=== PATIENT | male | born 1995 | race Two or more races ===

== ENCOUNTER 2020-11-27 15:11 | Outpatient (REF) | payer MEDICAID, SELFPAY | END 2020-11-27 15:12 | disposition home or self-care (01) | LOC: HO.LAB 15:11 | PROVIDERS: Visit Provider Internal Medicine | DX: Z20.822 Contact with and (suspected) exposure to COVID-19 (principal) | CPT/HCPCS: 36415; C9803; U0003; U0005 ==

== ENCOUNTER 2022-02-03 21:43 | Emergency (ER) | payer MEDICAID, SELFPAY ==
--- NOTE | ~2022-02-03 | XR_ITS ---
EXAMINATION: XR ANKLE, LEFT CLINICAL INFORMATION: Soft tissue swelling at lateral malleolus. COMPARISON: None TECHNIQUE: 3 views. of the left ankle. FINDINGS: The bones and soft tissues are normal. No fracture. Alignment is anatomic. Joint spaces are maintained. No joint effusion. XR/XR ankle LT min 3V IMPRESSION: Soft tissue swelling at lateral malleolus. There is no acute osseous abnormality.
[2022-02-03 21:50] VITALS: BP 108/68; PULSE 92; RESP 18; TEMP 37.1; O2SAT 96; BMI 19.1
--- NOTE | 2022-02-03 23:05 | ED.LOWEXIN ---
HPI - Extremity Injury (Lower) General Chief Complaint: Extremity Injury, Lower Stated Complaint: ?left ankle sprain Time Seen by Provider: 02/03/22 23:05 Source: patient Mode of arrival: ambulatory History of Present Illness HPI Narrative: 27-year-old male presents with left ankle pain and outside ankle swelling after he is playing basketball in suffered in inversion roll onto it. Patient denies any numbness/tingling into the distal foot. Related Data Allergies Allergy/AdvReac Type Severity Reaction Status Date / Time Penicillins [PENICILLINS] Allergy Intermediate UNKNOWN Verified 02/03/22 21:49 penicillin V Allergy Unknown Rash Verified 02/03/22 21:49 seasonal Allergy Unknown Unknown Uncoded 02/03/22 21:49 Review of Systems Review of Systems: Pertinent positives and negatives as stated in HPI and 10 point review of systems is otherwise negative. [facility] Past Medical History Source: nursing notes reviewed Social History Social History Advance Directives: No Physical Exam Vital Signs: Vital Signs: Last Vital Signs Temp 98.8 F 02/03/22 21:50 Pulse 92 02/03/22 21:50 Resp 18 02/03/22 21:50 BP 108/68 02/03/22 21:50 Pulse Ox 96 02/03/22 21:50 BMI result Body Mass Index 19.1 VITAL SIGNS: Reviewed. GENERAL: Well developed, well nourished, in no acute distress. HEAD: Normocephalic/atraumatic EYES: PERRLA, EOMI EARS: Ext canals without abnormality OROPHARYNX: no oral lesions noted, posterior pharynx clear LUNGS: Normal breath sounds. CARDIOVASCULAR: Regular rate and rhythm without noted murmurs ABDOMEN: Soft, non-tender, non-distended with bowel sounds. LEFT ANKLE: No midfoot tenderness, noted bony deformity, lateral malleolus swelling noted without ecchymosis, palpable DP/PT, sensation is intact capillary refill less than 3 seconds. NEUROLOGIC: Alert and oriented x 4. Course Course Course Narrative: 27-year-old male with left ankle sprain after review x-ray. Given an Parrish wrap, crutches, combination analgesics and discharged home in stable condition. Discharge Plan Discharge Clinical Impression: Ankle sprain and strain Patient Disposition: Home, Self-Care Instructions: Ankle Sprain (ED), Crutch Instructions (ED), R.I.C.E. Treatment (ED) Additional Instructions: 1. Recommend [id number] Tylenol/ibuprofen as needed for pain control. Apply ice to unexposed skin for 10-15 minutes, 3 to 4 times a day. 2. Please review the recommendations for rest, ice, compression (Parrish wrap), and elevation. 3. Follow-up with your primary care provider in next 2-3 days for re-evaluation and further outpatient management. Return to the ER for worsening symptoms. Referrals: Marlen Nino MD [Primary Care Provider] - Stand Alone Forms: Work/School Release
[2022-02-03] MEDS: Ibuprofen 400 MG TABLET PO (23:45)
[2022-02-03] MEDS: Acetaminophen 325 MG TABLET 975 MG PO (23:46)
--- NOTE | 2022-02-03 23:47 | PC.NURSE ---
medicated per provider order.
== END 2022-02-03 23:51 | disposition home or self-care (01) ==
PROVIDERS: Emergency Provider Student in an Organized Health Care Education/Training Program; PCP Pediatrics
DX: S93.402A Sprain of unspecified ligament of left ankle, initial encounter (principal); S96.912A Strain of unspecified muscle and tendon at ankle and foot level, left foot, initial encounter; X50.1XXA Overexertion from prolonged static or awkward postures, initial encounter; Y93.67 Activity, basketball; Y92.310 Basketball court as the place of occurrence of the external cause; Y99.9 Unspecified external cause status
CPT/HCPCS: 73610; 99282; 99283

== ENCOUNTER 2022-04-17 15:52 | Outpatient (REF) | payer MEDICAID, SELFPAY ==
[2022-04-17 17:29] LABS: COVID-19 Test Negative (Negative); IDNOW Serial# 9DD0AD1C
== END 2022-04-17 15:53 | disposition home or self-care (01) ==
LOC: HO.LAB 15:52
PROVIDERS: Visit Provider Internal Medicine
DX: Z20.822 Contact with and (suspected) exposure to COVID-19 (principal)
CPT/HCPCS: 87635; C9803

== ENCOUNTER 2022-06-01 15:36 | Outpatient (REF) | payer MEDICAID, SELFPAY ==
[2022-06-01 16:32] LABS: COVID-19 Test Negative (Negative); IDNOW Serial# 16C4AD1C
== END 2022-06-01 15:37 | disposition home or self-care (01) ==
LOC: HO.LAB 15:36
PROVIDERS: Visit Provider Internal Medicine
DX: Z20.822 Contact with and (suspected) exposure to COVID-19 (principal)
CPT/HCPCS: 87635; C9803

== ENCOUNTER 2023-12-08 15:45 | Outpatient (REF) | payer MEDICAID, SELFPAY ==
[2023-12-08 17:27] LABS: MANUAL DIFF FLAG NO
[2023-12-08 17:35] LABS: Basophils Percent Auto 0.5 % (0-2); Eosinophils Absolute Auto 0.2 X10*3/uL (0.0-0.4); Eosinophils Percent Auto 2.2 % (0-4); Hematocrit 47.6 % (42.0-52.0); Hemoglobin 16.4 g/dl (14.0-18.0); Imm Gran Abs Auto 0.02 X10*3/uL (0.00-0.03); Imm Gran Pct Auto 0.2 % (0.0-0.4); Lymphocytes Absolute Auto 2.2 X10*3/uL (1.2-4.9); Lymphocytes Percent Auto 27.2 % (20-40); Mean Corpuscular HGB Conc 34.5 g/dl (31.0-36.0); Mean Corpuscular Hemoglobin 31.3 pg (27.0-33.0); Mean Corpuscular Volume 90.8 fL (80.0-98.0); Mean Platelet Volume 9.9 fL (9.4-12.4); Monocytes Absolute Auto 0.6 X10*3/uL (0.1-1.2); Monocytes Percent Auto 7.6 % (2-11); Neutrophils Absolute Auto 5.1 x10*3/uL (2.0-8.3); Neutrophils Percent Auto 62.3 % (45-73); Platelet Count 329 X10*3/uL (160-400); Red Blood Count 5.24 X10*6/uL (4.60-5.80); Red Cell Distribution Width 12.9 % (11.0-16.0); White Blood Count 8.2 X10*3/uL (4.8-10.8)
[2023-12-08 18:01] LABS: Alanine Aminotransferase 30 U/L (0-40); Albumin Level 4.4 g/dL (3.5-5.0); Alkaline Phosphatase 113 U/L (39-117); Anion Gap 11 (12-20); Aspartate Amino Transferase 26 U/L (5-37); Bilirubin Total 0.4 mg/dL (0.0-1.0); Blood Urea Nitrogen 22 mg/dL (9-16); Calcium 9.5 mg/dL (8.4-10.2); Carbon Dioxide 25 mmol/L (22-29); Chloride 109 mmol/L (96-108); Estimated Glomerular Filt Rate > 60; Glucose Random 81 mg/dL (60-115); Potassium 4.1 mmol/L (3.3-5.1); Sodium 141 mmol/L (135-145); Total Protein 7.2 g/dL (6.5-8.0)
[2023-12-08 18:16] LABS: TSH reflex Free T4 0.45 uIU/mL (0.32-4.0); Vitamin D 25-OH Total 22.9 ng/mL (>30)
[2023-12-08 18:31] LABS: Folate 8.7 ng/mL (> or = 4.0); Vitamin B12 569 pg/mL (200-900)
[2023-12-09 07:13] LABS: HBS Num1 3.34 mIU/mL (0-7.99); HBc Num1 0.06 S/CO (0.00-0.79); HBsAGNum1 0.36 S/CO (0.00-0.99); Hepatitis A Antibody IgM 0.17 Index (0-0.79); Hepatitis B Core Antibody Nonreactive (Nonreactive); Hepatitis B Surface Antigen Negative (Negative); ~HepC Num1 0.08 S/CO (0.00-0.79); ~Hepatitis A Antibody IgM Nonreactive (Nonreactive); ~Hepatitis B Surface Antibody NONREACTIVE (Nonreactive); ~Hepatitis C Antibody Nonreactive (Nonreactive)
== END 2023-12-08 15:46 | disposition home or self-care (01) ==
LOC: HO.CHCLDS 15:45
PROVIDERS: Visit Provider Pediatrics
DX: F90.2 Attention-deficit hyperactivity disorder, combined type (principal); F41.9 Anxiety disorder, unspecified; R53.82 Chronic fatigue, unspecified
CPT/HCPCS: 36415; 80053; 82306; 82607; 82746; 84443; 85025; 86704; 86706; 86709; 86803; 87340

== ENCOUNTER 2024-08-29 20:57 | Emergency (ER) | payer MEDICAID, SELFPAY ==
[2024-08-29 21:00] VITALS: BP 99/72; PULSE 85; RESP 16; TEMP 36; O2SAT 97; BMI 18.5
[2024-08-29 21:29] LABS: IDNOW Serial# 58CA691E; Strep A Nucleic Acid Negative (Negative)
[2024-08-29 21:38] LABS: IDNOW Serial# 9DB6401D
[2024-08-29 21:39] LABS: COVID-19 Test Negative (Negative)
[2024-08-29 21:40] LABS: IDNOW Serial# 55D5AD1C; Influenza A Negative (Negative); Influenza B2 Negative (Negative)
--- NOTE | 2024-08-29 21:47 | ED.GENADULT ---
HPI - General Adult General Chief complaint: General Medical Stated complaint: Rash/?Strep Time Seen by Provider: 08/29/24 21:21 Source: patient, RN notes reviewed and old records reviewed Mode of arrival: ambulatory Limitations: no limitations History of Present Illness ED Provider: Teofilo WARE narrative: 29-year-old male who denies any past medical history presents for evaluation of a sore throat and rash. He reports he has had headache, sore throat for about 6 days. His cold symptoms have improved. He now has an itchy rash mostly in his abdomen and thigh. He is concerned for strep pharyngitis. He denies any fevers, chills, shortness of breath. Denies any abdominal pain, nausea vomiting. Denies any new medications No other complaints or concerns at this time Related Data Allergies Allergy/AdvReac Type Severity Reaction Status Date / Time Penicillins [PENICILLINS] Allergy Intermediate UNKNOWN Verified 08/29/24 21:07 penicillin V Allergy Unknown Rash Verified 08/29/24 21:07 seasonal Allergy Unknown Unknown Uncoded 08/29/24 21:07 Review of Systems Constitutional: Constitutional: Denies body ache(s), Denies chills, Denies fever(s) and Reports headache(s) ENT: Reports headache(s), Denies sinus pain, Denies sinus pressure and Reports sore throat Cardiovascular: Cardiovascular: Denies chest pain and Denies dyspnea Respiratory: Respiratory: Denies cough and Denies dyspnea Gastrointestinal: Gastrointestinal: Denies abdominal pain, Denies nausea and Denies vomiting Musculoskeletal: Musculoskeletal: Denies back pain Integumentary/Breasts: Skin/Breast: Reports pruritus and Reports rash Neurologic: Reports headache(s) Psychiatric: Psychiatric: Denies anxiety PMFSH Social History Social History Do you have a plan to hurt others: No Plan Physical Exam ED Vital Signs: Vital Signs - 24 hr 08/29/24 21:00 Temperature 96.8 F Pulse Rate 85 Respiratory Rate 16 Blood Pressure 99/72 Pulse Oximetry 97 Oxygen Delivery Method Room Air BMI result Body Mass Index 18.5 Const General: healthy appearing, comfortable, no acute distress, alert and awake Nutritional Appearance: well nourished Orientation/consciousness: patient oriented x3 HENMT Head: Yes normocephalic and Yes atraumatic Eyes Eyelids: Yes eyelids normal Conjunctivae: conjunctivae normal Sclerae: sclerae normal Corneas: corneas normal Pupils: Equal, round and reactive pupils present EOM: EOMs intact bilaterally Neck Neck: Yes full ROM Resp Effort & Inspection: normal respiratory effort, able to speak in complete sentences and not labored Cardio Rate: regular rate Rhythm: regular rhythm Skin Other: Diffuse erythematous maculopapular rash mostly to the upper thighs, abdomen, there is limited involvement of the back. No involvement of the face, palms or soles. General skin exam: elasticity normal Neuro General: patient oriented x3 Cranial nerves: Yes Equal, round and reactive pupils present and Yes Bilaterally intact EOM present Cognition (Neuro): normal cognition Extrem Other: Moving all extremities well without any obvious deformities Medical Decision Making Medical Decision Making MDM Narrative: 21-year-old male presents for evaluation of a rash. His flu-like symptoms have improved, he has continued to most strep pharyngitis given his sore throat. He had a strep swab that was negative, influenza and COVID test also negative. His vital signs are stable, he is well-appearing. His symptoms are most likely related to viral etiology. We will treat symptomatically. There was no urticaria or anaphylaxis Differential Diagnosis Differential Diagnoses: The differential diagnosis associated with the presentation includes Dermatitis Viral exanthem Viral enanthem Strep pharyngitis Influenza COVID-19 Lab Data Labs: Lab Results 08/29/24 08/29/24 08/29/24 Range/Units 21:13 21:14 21:15 COVID-19 (CIARAN) Negative (Negative) COVID-19 Clin Com See Note Influenza Type A (DEBI) Negative (Negative) Influenza Type B (DEBI) Negative (Negative) Influenza A & B Note See Note S. pyogenes GrpA DEBI Negative (Negative) Discharge Plan Discharge Clinical Impression: Viral illness Patient Disposition: Home, Self-Care Instructions: Viral Syndrome (ED) Additional Instructions: Your workup in the ER today was reassuring. You tested negative for strep pharyngitis, negative for influenza, COVID. Take Motrin and Tylenol for your body aches. Use Zyrtec or Benadryl as needed for your rash and itching You may also apply [id number] hydrocortisone cream to help with the rash Print Language: Upper Sorbian
[2024-08-29 22:34] VITALS: BP 118/55; PULSE 76; RESP 18; TEMP 36.7; O2SAT 96
== END 2024-08-29 22:36 | disposition home or self-care (01) ==
LOC: HO.ED 22:23
PROVIDERS: Emergency Provider Emergency Medicine; PCP Pediatrics
DX: B34.9 Viral infection, unspecified (principal); J02.9 Acute pharyngitis, unspecified; R51.9 Headache, unspecified; R21 Rash and other nonspecific skin eruption; Z11.52 Encounter for screening for COVID-19
CPT/HCPCS: 87502; 87635; 87651; 99282; 99283

== ENCOUNTER 2024-10-14 19:21 | Emergency (ER) | payer MEDICAID, SELFPAY ==
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
[2024-10-14 19:54] VITALS: BP 137/62; PULSE 94; RESP 16; TEMP 37.1; O2SAT 98; BMI 19.0
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
--- OUTSIDE RECORDS SUMMARY | 2024-10-14 21:15 | XMS_ITS | Encounter Summary ---
Author Organization [employer] Address [address] [facility] [address] [place] [address] Care Team Providers Care Community Product Specialist Name Role Phone Marlen Nino MD Primary Care Provider [phone] Reason for Visit * Reason Onset Date Comments Medication Question 01/27/2024 Encounter Details Date Type Department Care Team ([facility] st Contact Info) Description 01/27/2024 Telephone [facility] MEDICINE [address] [place], [place] [phone] Marlen Nino MD [address] [place], [place] [phone] Medication Question Social History Tobacco Use Types Packs/Day Years Used Date Smoking Tobacco: Never Passive Smoke Exposure: Never Smokeless Tobacco: Never Depression Answer Date Recorded Patient Health Questionnaire-9 Score 8 09/10/2022 Housing Stability Answer Date Recorded What is your housing situation today? I have geoffrey stahl 07/12/[address] you li ve. Do you have problems with any of the following? None of the above 07/12/2023 Food Insecurity Answer Date Recorded Within the past 12 months, y ou worried that your food would run out before you got money to buy more: Never True 07/12/2023 Within the past 12 months,th e food you bought just didn't last and you didn't have enough money to get more: Never True 02/2023 Transportation Answer Date Recorded In the past 12 months, has l ack of transportation kept you from medical appts, meetings, work or from getting things needed for daily living? No 07/12/2023 Utilities Answer Date Recorded In the past 12 months, has t he electric, [employer], oil or water [email or web address] threatened to shut off services in your home? No 07/12/2023 Depression Answer Date Recorded Patient Health Questionnaire-2 Score 1 09/10/2022 Sex and Gender Information Value Date Recorded Sex Assigned at Male 07/06/2022 10:16 AM EDT Legal Sex Male 10:16 AM EDT Gender Identity Male 07/06/2022 10:16 AM EDT Sexual Orientation Straight 07/06/2022 10 :16 AM EDT documented as of this encounter Miscellaneous Notes * Telephone Encounter - Flor Mike RN - 04/21/2024 9:32 AM EDT [employer] message sent. Pt was called on 02/02/24 and VM left. * Telephone Encounter - Elena Noel - 04/20/2024 11:12 AM EDT Tc from pt requesting status on phone call. * Telephone Encounter - Salas Moore - 01/27/2024 3:41 PM EDT Tc from pt requesting call back to discuss amphetamine-dextroamphetamine XR (Adderall XR) 10 MG 24 hr capsule. Pt is requesting to possibly substitute or prescribing a fast acting version of Adderallalong with current prescription. Please contact pt at [phone]. documented in this encounter Plan of Treatment Not on file documented as of this encounter Visit Diagnoses Not on filedocumented in this encounter Additional Health Concerns Assessment Noted Time PHQ-9 Depression Total Score: 8 09/10/19 11:11 AM EST documented as of this encounter Care Teams Community Product Specialist Relationship Specialty Start Date End Date Marlen Nino MD [address] [place] [id number] PCP - General Family Medicine 06/29/14 documented as of this encounter
--- OUTSIDE RECORDS SUMMARY | 2024-10-14 21:15 | XMS_ITS | Encounter Summary ---
Author Organization [employer] Address [address] [facility] [address] [place] [address] Care Team Providers Care Printer Floor Covering Assistant Name Role Phone Marlen Nino MD Primary Care Provider [phone] Reason for Visit * Reason Onset Date Comments Med Refill 09/28/2024 Encounter Details Date Type Department Care Team ([facility] st Contact Info) Description 09/28/2024 Refill [facility] MEDICINE [address] [place], [place] [phone] Marlen Nino MD [address] [place], [place] [phone] Attention deficit hyperactivity disorder (ADHD), combined type Social History Tobacco Use Types Packs/Day Years Used Date Smoking Tobacco: Never Passive Smoke Exposure: Never Smokeless Tobacco: Never Depression Answer Date Recorded Patient Health Questionnaire-9 Score 4 08/09/2024 Patient Health Questionnaire-9 Score 4 08/09/2024 Last PHQ-9: Questionnaire Data Not on file 1 10/10/2023 Housing Stability Answer Date Recorded What is your housing situation today? I have geoffrey stahl 08/09/[address] you li ve. Do you have problems with any of the following? None of the above 08/09/2024 Food Insecurity Answer Date Recorded Within the past 12 months, y ou worried that your food would run out before you got money to buy more: Never True 08/09/2024 Within the past 12 months,th e food you bought just didn't last and you didn't have enough money to get more: Never True 12/2023 Transportation Answer Date Recorded In the past 12 months, has l ack of transportation kept you from medical appts, meetings, work or from getting things needed for daily living? No 08/09/2024 Utilities Answer Date Recorded In the past 12 months, has t he electric, gas, oil or water company threatened to shut off services in your home? No 08/09/2024 Depression Answer Date Recorded Patient Health Questionnaire-2 Score 0 08/09/2024 Internet Access Answer Date Recorded Internet Access Q1 Yes 08/09/2024 Internet Access Q2 Not on file 08/09/2024 Sex and Gender Information Value Date Recorded Sex Assigned at Male 07/06/2022 10:16 AM EDT Legal Sex Male 10:16 AM EDT Gender Identity Male 07/06/2022 10:16 AM EDT Sexual Orientation Straight 07/06/2022 10 :16 AM EDT documented as of this encounter Miscellaneous Notes * Telephone Encounter - Shayla Gonzalez LPN - 09/28/2024 10:59 AM EST [employer] checked on 09/28/24. Last seen 09/20/24. * Telephone Encounter - Pascual Benitez - 09/28/2024 8:47 AM EST TC from pt requesting medication refill. Medications needing refill : amphetamine-dextroamphetamine XR (Adderall XR) 20 MG 24 hr capsule To be sent to: [id number] [id number] [facility] documented in this encounter Plan of Treatment Not on file documented as of this encounter Visit Diagnoses Diagnosis Attention deficit hyperactivity disorder (ADHD), combined type documented in this encounter Additional Health Concerns Assessment Noted Time PHQ-9 Depression Total Score: 4 08/09/20 24 10:34 AM EST documented as of this encounter Care Teams Printer Floor Covering Assistant Relationship Specialty Start Date End Date Marlen Nino MD [address] [place] [id number] PCP - General Family Medicine 06/29/14 documented as of this encounter
--- OUTSIDE RECORDS SUMMARY | 2024-10-14 21:15 | XMS_ITS | Encounter Summary ---
Author Organization [employer] Address [address] [facility] 7 [place] [address] Care Team Providers Care Social Worker Delinquency Prevention Name Role Phone Marlen Nino MD Primary Care Provider [phone] Reason for Visit * Reason Onset Date Comments Appointment Request 10/26/2023 Encounter Details Date Type Department Care Team ([facility] st Contact Info) Description 10/26/2023 Telephone [facility] MEDICINE [address] [place] [address] Marlen Nino MD [address] [place], [place] [phone] Appointment Request Social History Tobacco Use Types Packs/Day Years [...] past 12 months, has t he electric, [employer], oil or water company threatened to shut [...] encounter Miscellaneous Notes * Telephone Encounter - Ita Campo RN - 10/27/2023 3:35 PM EST TC returned to patient regarding message below. Went directly to Pablo RYAN to call us back to set up an appointment with PCP. Recall placed in system for f/u with PCP first week of November. Routing back to [facility] nurses to try to contact patient next week. Tc from patient requesting a appt to discuss about the amphetamine- dextroamphetamine XR (Adderall XR) 10 MG 24 hr capsule medication and would like to get tested for diabetes patient is currently feeling pain in fingers and toes and the patient also feel poor circulation food writer was going to triage the patient but the patient will not be in town until the week of 11/01 * Telephone Encounter - Hakeem Cuadra - 10/26/2023 11:35 AM EST Tc from patient requesting a appt to discuss about the amphetamine- dextroamphetamine XR (Adderall XR) 10 MG 24 hr capsule medication and would like to get tested for diabetes patient is currently feeling pain in fingers and toes and the patient also feel poor circulation food writer was going to triage the patient but the patient will not be in town until the week of 11/01 documented in this encounter Plan of Treatment Not on file documented as of this encounter Visit Diagnoses Not on filedocumented in this encounter Additional Health Concerns Assessment Noted Time PHQ-9 Depression Total Score: 8 09/10/19 23 11:11 AM EST documented as of this encounter Care Teams Social Worker Delinquency Prevention Relationship Specialty Start Date End Date Marlen Nino MD [address] [place] [address] PCP - General Family Medicine 06/29/14 documented as of this encounter
--- OUTSIDE RECORDS SUMMARY | 2024-10-14 21:15 | XMS_ITS | Encounter Summary ---
Author Organization [employer] Address [address] [facility] [address] [place] [address] Care Team Providers Care Crosscutter Name Role Phone Marlen Nino MD Primary Care Provider [phone] Reason for Visit * Reason Comments Sore Throat Encounter Details Date Type Department Care Team ([facility] st Contact Info) Description 09/20/2024 4:20 PM EST Office Visit [facility] [address] [place] [address] Sharla Thornton MD [address] [place] [address] Sore throat (Primary Dx); Gastroesophageal reflux disease without esophagitis Social History Tobacco Use Types Packs/Day Years [...] AM EDT documented as of this encounter Last Filed Vital Signs Vital Sign Reading Time Taken Comments Blood Pressure 125/71 09/20/2024 4:10 PM EST Pulse 98 09/20/2024 4:10 PM EST Temperature 37.1 ??C (98.8 ??F) 09/20/2024 4:10 PM ES T Respiratory Rate 18 09/20/2024 4:10 PM EST Oxygen Saturation 98% 09/20/2024 4:10 PM EST Inhaled Oxygen Concentration - - Weight 51.8 kg (114 lb 3.2 oz) 09/20/2024 4:10 P M EST Height 165.1 cm (5' 5 ) 09/20/2024 4:10 PM EST Body Mass Index 19 09/20/2024 4:10 PM EST documented in this encounter Progress Notes * Sharla Thornton MD - 09/20/2024 4:20 PM EST Subjective Patient ID: Martinez Callahan is a 29 y.o. male who presents for Sore Throat. Sore Throat This is a new problem. The current episode started more than 1 month ago. The problem has been unchanged. There has been no fever. The pain is at a severity of 0/10. The patient is experiencing no pain. Associated symptoms include a hoarse voice. Pertinent negatives include no abdominal pain, congestion, coughing, diarrhea, drooling, ear discharge, ear pain, headaches or swollen glands. Review of Systems HENT: Positive for hoarse voice and sore throat. Negative for congestion, drooling, ear discharge and ear pain. Respiratory: Negative for cough. Gastrointestinal: Negative for abdominal pain and diarrhea. Neurological: Negative for headaches. Objective Physical Exam Constitutional: Appearance: Normal appearance. Cardiovascular: Rate and Rhythm: Normal rate and regular rhythm. Pulmonary: Effort: Pulmonary effort is normal. Breath sounds: Normal breath sounds. Neurological: General: No focal deficit present. Mental Status: He is alert. Psychiatric: Mood and Affect: Mood normal. Behavior: Behavior normal. Assessment/Plan Diagnoses and all orders for this visit: Sore throat Comments: Strep Neg Started on Omeprazole daily in am Orders: - POCT Rapid Strep A OAKLEY ID NOW Gastroesophageal reflux disease without esophagitis Comments: Avoid provocative foods: citrus, alcohol, coffee, chocolate, mints. Eat smaller meals, no eating three hours prior to bedtime. Other orders - omeprazole OTC (PriLOSEC OTC) 20 MG EC tablet; Take 1 tablet (20 mg) by mouth before breakfast. Do not crush, chew, or split. documented in this encounter Plan of Treatment Not on file documented as of this encounter Procedures Procedure Name Priority Date/Time Associated Diagnosis Comments POC OAKLEY ID NOW STREP A Routine 09/20/2024 4:40 PM EST Sore throat documented in this encounter Results * POCT Rapid Strep A OAKLEY ID NOW (09/20/2024 4:40 PM EST) Rapid Strep A Screen Negative Negative, None Detected Swab 09/20/2024 4:40 PM EST us Sharla Thornton MD POINT OF CARE TEST ENTER/EDIT OR DERABLES Final Result documented in this encounter Visit Diagnoses Diagnosis Sore throat- Primary Acute pharyngitis Gastroesophageal reflux disease without esophagitis Esophageal reflux documented in this encounter Additional Health Concerns Assessment Noted Time PHQ-9 Depression Total Score: 4 08/09/20 24 10:34 AM EST documented as of this encounter Care Teams Crosscutter Relationship Specialty Start Date End Date Marlen Nino MD [address] [place] [phone] PCP - General Family Medicine 06/29/14 documented as of this encounter
--- OUTSIDE RECORDS SUMMARY | 2024-10-14 21:15 | XMS_ITS | Encounter Summary ---
Author Organization [employer] Address [address] [facility] [address] [place] [address] Care Team Providers Care Program Production Specialist Name Role Phone Marlen Nino MD Primary Care Provider [phone] Encounter Details Date Type Department Care Team ([facility] st Contact Info) Description 07/10/2024 Telephone [facility] [address] [place], [place] [phone] Marlen Nino MD [address] [place], [place] [phone] Social History Tobacco Use Types Packs/Day Years Used Date Smoking Tobacco: Never Passive Smoke Exposure: Never Smokeless Tobacco: Never Depression Answer Date Recorded Patient Health Questionnaire-9 Score 8 09/10/2022 Housing Stability Answer Date Recorded What is your housing situation today? I have geoffreykike stahl 07/12/[address] you [...] AM EDT documented as of this encounter Plan of Treatment Not on file documented as of this encounter Visit Diagnoses Not on filedocumented in this encounter Additional Health Concerns Assessment Noted Time PHQ-9 Depression Total Score: 8 09/10/19 23 11:11 AM EST documented as of this encounter Care Teams Program Production Specialist Relationship Specialty Start Date End Date Marlen Nino MD [address] [place] [phone] PCP - General Family Medicine 06/29/14 documented as of this encounter
--- OUTSIDE RECORDS SUMMARY | 2024-10-14 21:15 | XMS_ITS | Clinical Summary ---
Author Organization [employer] Address [address] [facility] 7[address] [place] [address] Care Team Providers Care Granulizing Machine Operator Name Role Phone Marlen Nino MD Primary Care Provider [phone] Allergies Active Allergy Reactions Criticality Noted Date Comments Penicillins 06/20/2019 Medications * This document contains information received from the source organization and may not represent a complete record from that organization. Multiple Vitamins-Minerals (Multivitamin Men) tablet Take 1 tab orally daily 90 tablet 3 08/17/20 24 Active omeprazole OTC (PriLOSEC OTC) 20 MG EC tablet Take 1 tablet (20 mg) by mouth before breakfast. Do not crush, chew, or split. 30 tablet 11 09/20/19 25 026 Active amphetamine-dextr oamphetamine XR (Adderall XR) 20 MG 24 hr capsuleIndication s:Attention deficit hyperactivity disorder (ADHD), combined type TAKE 1 CAPSULE BY MOUTH EVERY DAY. DO NOT CRUSH OR CHEW. 30 capsule 09/28/19 25 Active amphetamine-dextr oamphetamine XR (Adderall XR) 20 MG 24 hr capsuleIndication s:Attention deficit hyperactivity disorder (ADHD), combined type TAKE 1 CAPSULE BY MOUTH EVERY DAY. DO NOT CRUSH OR CHEW. 30 capsule 08/23/20 24 025 Discontinued(Re order (will not trigger notification to Pharmacy)) Active Problems Problem Noted Date Diagnosed Date Attention deficit hyperactiv ity disorder (ADHD), combined type 09/10/2022 Anxiety 09/10/2022 Congenital ptosis 07/02/2014 Resolved Problems Problem Noted Date Diagnosed Date Resolved Date Lymphadenopathy, anterior cervical 08/21/2022 09/10/2022 Assessment & Plan (08/21/2022 3:50 PM EST): Patient with new onset left sided lymphadenopathy, afebrile, no recent weight loss. Will send labs and recommended followup with PCP. Encounters * This document contains information received from the source organization and may not represent a complete record from that organization. Date Type Department Care Team Description 09/28/2024 Refill [facility] [address] [place] [address] Marlen Nino MD Attention deficit hyperactivity disorder (ADHD), combined type 09/20/2024 4:20 PM EST Office Visit [facility] [address] [place] [address] Sharla Thornton MD Sore throat (Primary Dx); Gastroesophageal reflux disease without esophagitis 08/29/2024 Orders Only GENERIC EXTERNAL DATA DEPARTMENT Provider, Generic External Data 08/28/2024 Telephone [facility] [address] [place] [address] Marlen Nino MD Nurse Triage 08/23/2024 Refill [facility] [address] [place] [address] Marlen Nino MD Attention deficit hyperactivity disorder (ADHD), combined type 08/17/2024 Refill [facility] [address] [place] [address] Marlen Nino MD 08/09/2024 9:45 AM EST Office Visit [facility] [address] [place] [address] Marlen iNno MD Attention deficit hyperactivity disorder (ADHD), combined type (Primary Dx); Dietary counseling; Exercise counseling; Routine general medical examination at a health care facility 08/09/2024 Travel 07/27/2024 Patient Outreach [facility] [address] [place] [address] Marlen Nino MD Pre-visit Planning ([facility] unable to reach [facility]) from Last 3 Months Immunizations Name Administration Dates Next Due Hep B, adult 02/02/2024 Influenza Injectable Quadriv alant Preservative Free IIV4 MDCK 06/09/2021 Influenza injectable quadriv alent IIV4 with preservative 06/20/2019,06/15/2018 Influenza injectable quadrivalent preservative f ree 06/04/2022 Tdap 06/20/2019 Social History Tobacco Use Types Packs/Day Years Used Date Smoking Tobacco: Never Passive Smoke Exposure: Never Smokeless Tobacco: Never Tobacco Cessation:Counseling Given: Not Answered Depression Answer Date Recorded Patient Health Questionnaire-9 [...] Orientation Straight 07/06/2022 10 :16 AM EDT Last Filed Vital Signs Vital Sign Reading [...] Mass Index 19 09/20/2024 4:10 PM EST Plan of Treatment Health Maintenance Due Date Last Done Comments Family Planning (PISQ) 01/20/2011 Hepatitis B Vaccines (2 of 3 - 19+ 3-dose series) 03/01/2024 02/02/2024 COVID-19 Vaccine (2 - season) 2024 06/09/2021 Influenza Vaccine (#1) 2024 , 06/09/2021, 06/20/2019, Additional history exists Alcohol/Substance Use Screening 08/09/2025 08/09/2024 Depression Screening 08/09/2025 08/09/2024, 08/09/20 SDOH Screening 08/09/2025 08/09/2024 Tobacco Screening 08/09/2025 08/09/2024 DTaP/Tdap/Td Vaccines (2 - Td or Tdap) 06/20/2029 06/20/2019 Zoster Vaccines (1 of 2) 01/20/2046 RSV Patients and Patients Aged 60 years or older (1 - 1-dose 75+ series) 01/20/2071 HIV Screening Completed 04/29/2022 Hepatitis C Screening Completed 12/08/2023, 022 HIB Vaccines Aged Out No longer eligi ble based on patient's age to complete this topic HPV Vaccines Aged Out No longer eligi ble based on patient's age to complete this topic Hepatitis A Vaccines Aged Out No long er eligible based on patient's age to complete this topic IPV Vaccines Aged Out No longer eligi ble based on patient's age to complete this topic Meningococcal Vaccine Aged Out No torin saeid eligible based on patient's age to complete this topic Pneumococcal Vaccine: Pediatrics (0 to 5 Years) and At-Risk Patients (6 to 49) Years) Aged Out No longer eligible based on patient's age to complete this topic RSV under 20 months Aged Out No longe r eligible based on patient's age to complete this topic Rotavirus Vaccines Aged Out No longer eligible based on patient's age to complete this topic Procedures Procedure Name Priority Date/Time Associated Diagnosis Comments POC O[place] ID NOW STREP A Routine 09/20/2024 4:40 PM EST Sore throat INFLUENZA A B2 ID NOW (OAKLEY) Routine 08/29/2024 9:15 PM EST COVID-19 ID NOW (OAKLEY) Routine 08/29/2024 9:14 PM EST STREP A NUCLEIC ACID Routine 08/29/2024 9:13 PM EST HEPATITIS PANEL, GENERAL Routine 12/08/2023 3:46 PM EDT Attention deficit hyperactivity disorder (ADHD), combined type Anxiety Chronic fatigue HIV 1/2 ANTIGEN/ANTIBODY, FOURTH GENERATION W/RFL Routine 04/29/2022 11:31 AM EDT from Last 3 Months or Most Recently Relevant to Health Maintenance Results * POCT Rapid Strep A [place] ID NOW (09/20/2024 4:40 PM EST) Rapid Strep A Screen Negative Negative, None Detected Swab 09/20/2024 4:40 PM EST Sharla Thornton MD POINT OF CARE TEST ENTER/EDIT OR DERABLES Final Result * Influenza A B2 ID NOW (Oak[place]) (08/29/2024 9:15 PM EST) IDNOW SERIAL# [id number] [facility] Influenza A Negative Negative [facility] Influenza B2 Negative Negative [facility] Influenza A B2 Note See Note [facility] Comment:The Oakley ID NOW In fluenza A B2 test is used for thequalitative detection of influenza A and B from patientswith signs and symptoms of respiratory infection.Negative results do not preclude influenza virus infectionand should not be used as the sole basis for diagnosis,treatment or other patient management decisions.There is a risk of false negative results due to thepresence of variants in the viral targets of the assay, lowlevels of virus in the specimen and co- infection withRespiratory Syncytial Virus. 08/29/2024 9:15 PM EST 08/29/2024 9:17 PM EST us Generic External Data Provider LAB MICROBIOLOGY - GENERAL ORDERABLES Final Result [facility] [address] [place] [phone] * COVID-19 ID NOW (Xockets) (08/29/2024 9:14 PM EST) IDNOW SERIAL# [id number] [facility] COVID-19 TEST Negative Negative [facility] COVID-19 NOTE See Note [facility] Comment: Results are for the identification of SARS-CoV2 RNA. TheSARS-CoV2 RNA is generally detectable in respiratory samplesduring the acute phase of infection. Positive results areindicative of the presence of SARS-CoV-2 RNA; clinicalcorrelation with patient history and other diagnosticinformation is necessary to determine patient infectionstatus. Positive results do not rule out bacterial infectionor co- infection with other viruses.Testing facilities within the [facility] and itsterritories are required to report all positive results tothe appropriate public health authorities.Negative results should be treated as presumptive and, ifinconsistent with clinical signs and symptoms or necessaryfor patient management, should be tested with differentauthorized or cleared molecular tests. Negative results donot preclude SARS-CoV2 RNA infection and should not be usedas the sole basis for patient management decisions. Negativeresults should be considered in the context of a patient'srecent exposures, history and the presence of clinical signsand symptoms consistent with COVID-19.This test has been authorized by the FDA under an EmergencyUse Authorization (EUA) for use by authorized laboratories.Testing performed on the Quizens ID NOW utilizing NAAT. 08/29/2024 9:14 PM EST 08/29/2024 9:17 PM EST Generic External Data Provider LAB MOLECULAR ASHLEY GNOSTICS ORDERABLES Final Result Performing Organization Address [facility] Co de Phone Number [facility] [address] [place] [phone] * Strep A Nucleic Acid (08/29/2024 9:13 PM EST) IDNOW SERIAL# [id number] [facility] Strep A Nucleic Acid Negative Negative [facility] Comment:All test results mus t be correlated with clinical findings.This test has not been evaluated for monitoring treatment ofinfection.Additional follow-up testing using the culture method isrequired if the result is negative and clinical symptomspersist, or in the event of an acute rheumatic feveroutbreak. 08/29/2024 9:13 PM EST 08/29/2024 9:17 PM EST Generic External Data Provider LAB MICROBIOLOGY - GENERAL ORDERABLES Final Result Performing Organization Address [facility] de Phone Number [facility] [address] [place] [phone] * Hepatitis A,B,C Profile (12/08/2023 3:46 PM EDT) Hepatitis A IgM Nonreactive Nonreactive [facility] Comment:IgM antibodies to RUSSELL V not detected; does not exclude earlyacute or recovered HAV infection. ~Hepatitis B Surface Antibody NONREACTIVE Nonreactive [facility] Comment:Nonreactive: < 8.00 mIU/mL Hepatitis B Core Antibody Nonreactive Nonreactive [facility] Hepatitis C Antibody Nonreactive Nonreactive [facility] Comment:Antibodies to HCV no t detected; does not exclude early acuteHCV infection. Hepatitis B Surface Ag Negative Negative [facility] Blood Venous blood specimen / Unknown 12/08/2023 3:46 PM EDT 12/08/2023 5:22 PM EDT us Marlen Nino MD LAB BLOOD ORDERABLES Final Re sult [facility] [address] [place] [phone] * HIV 1/2 ANTIGEN/ANTIBODY,FOURTH GENERATION W/RFL (04/29/2022 11:31 AM EDT) HIV-1/2 ANTIGEN AND ANTIBODIES, 4TH GENERATION W/ REFLEX NON-REACT RAN NON-REACT RAN [facility] Comment: HIV-1 antigen and HIV-1/HIV-2 antibodies were not detected. There is no laboratory evidence of HIV infection. ?? PLEASE NOTE: This information has been disclosed to you from records whose confidentiality may be protected by state law. ??If your state requires such protection, then the state law prohibits you from making any further disclosure of the information without the specific written consent of the person to whom it pertains, or as otherwise permitted by law. A general authorization for the release of medical or other information is NOT sufficient for this purpose. ? For additional information please refer to http://education.[employer]/faq/KGH855 (This link is being provided for informational/ educational purposes only.) ? The performance of this assay has not been clinically validated in patients less than 2 years old. ?? 04/29/2022 11:3 1 AM EDT us Vic Meng MD LAB BLOOD ORDERABLES Final Result [facility] [address] from Last 3 Months or Most Recently Relevant to Health Maintenance Insurance [facility] [employer] Care Teams Granulizing Machine Operator Relationship Specialty Start Date End Date Marlen Nino MD [address] [place] [phone] PCP - General Family Medicine 06/29/14
--- OUTSIDE RECORDS SUMMARY | 2024-10-14 21:15 | XMS_ITS | Encounter Summary ---
Author Organization [email or web address] Address [address] [facility] 7 [place] [address] Care Team Providers Care Oil Well Logger Name Role Phone Marlen Nino MD Primary Care Provider [phone] Reason for Visit * Reason Onset Date Comments Med Refill 11/12/2022 Encounter Details Date Type Department Care Team ([facility] st Contact Info) Description 11/12/2022 Telephone [facility] [address] [place], [place] [phone] Marlen Nino MD [address] [place], [place] [phone] Med Refill Social History Tobacco Use Types Packs/Day Years [...] Orientation Straight 07/06/2022 10 :16 AM EDT COVID-19 Exposure Response Date Recorded In the last 10 days, have yo u been in contact with someone who was confirmed or suspected to have Coronavirus/COVID-19? No / Unsure 01/14/2023 4:01 PM EDT documented as of this encounter Miscellaneous Notes * Telephone Encounter - Dusty Royal - 11/12/2022 10:12 AM EST Tc from pt requesting a med refill adderall XR 10 mg documented in this encounter Plan of Treatment Not on file documented as of this encounter Visit Diagnoses Not on filedocumented in this encounter Additional Health Concerns Assessment Noted Time PHQ-9 Depression Total Score: 8 09/10/19 23 11:11 AM EST documented as of this encounter Care Teams Oil Well Logger Relationship Specialty Start Date End Date Marlen Nino MD [address] [place] [address] PCP - General Family Medicine 06/29/14 documented as of this encounter
[2024-10-14 22:21] VITALS: BP 137/62; PULSE 94; RESP 20; TEMP 37.1; O2SAT 98
--- NOTE | 2024-10-14 22:25 | PC.NURSE ---
gait steady. mental status at baseline/speech clear, no N/V. no distress.
== END 2024-10-14 22:26 | disposition home or self-care (01) ==
PROVIDERS: Emergency Provider Emergency Medicine; PCP Pediatrics
DX: S40.011A Contusion of right shoulder, initial encounter (principal); V43.52XA Car driver injured in collision with other type car in traffic accident, initial encounter; M79.18 Myalgia, other site; Y93.89 Activity, other specified; Y92.414 Local residential or business street as the place of occurrence of the external cause; Y99.9 Unspecified external cause status
CPT/HCPCS: 73030; 99282; 99283

== ENCOUNTER → 2024-10-14 20:03 | Outpatient (BNV) | payer MEDICAID, SELFPAY | PROVIDERS: PCP Pediatrics; Visit Provider Radiology Diagnostic Radiology | DX: M25.511 Pain in right shoulder (principal); Z04.3 Encounter for examination and observation following other accident | CPT/HCPCS: 73030 ==